=== PATIENT | female | born 1965 | race Caucasian/White ===

== ENCOUNTER → 2022-02-14 11:22 | Outpatient (BNVA) | payer OTHER, SELFPAY | PROVIDERS: Visit Provider Physician Assistant | DX: S63.602A Unspecified sprain of left thumb, initial encounter (principal); S89.92XA Unspecified injury of left lower leg, initial encounter; S89.91XA Unspecified injury of right lower leg, initial encounter; W18.31XA Fall on same level due to stepping on an object, initial encounter | CPT/HCPCS: 73110; 99203 ==

== ENCOUNTER → 2022-02-22 09:49 | Outpatient (BNVA) | payer OTHER, SELFPAY | PROVIDERS: Visit Provider Physician Assistant | DX: S63.602D Unspecified sprain of left thumb, subsequent encounter (principal); S63.601D Unspecified sprain of right thumb, subsequent encounter; S46.819D Strain of other muscles, fascia and tendons at shoulder and upper arm level, unspecified arm, subsequent encounter; W01.0XXD Fall on same level from slipping, tripping and stumbling without subsequent striking against object, subsequent encounter; M25.561 Pain in right knee | CPT/HCPCS: 73200; 99214 ==

== ENCOUNTER 2022-02-27 07:38 | Outpatient (REF) | payer OTHER, SELFPAY ==
--- NOTE | ~2022-02-27 | XR_ITS ---
EXAMINATION: XR HAND, LEFT CLINICAL INFORMATION: Pain. COMPARISON: Radiograph of the left wrist dated from 02/16/2022. TECHNIQUE: PA, lateral, and oblique views of the left hand. FINDINGS: No acute fractures or malalignment. Carpal rows are maintained. Redemonstration of mild osteoarthrosis of the first CMC joint. No erosions. No chondrocalcinosis. No significant soft tissue abnormality. XR/XR hand LT min 3V IMPRESSION: No acute fracture or malalignment. 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
== END 2022-02-27 07:39 | disposition home or self-care (01) ==
LOC: HO.HOSX 07:38
PROVIDERS: Visit Provider Physician Assistant
DX: S62.102A Fracture of unspecified carpal bone, left wrist, initial encounter for closed fracture (principal)
CPT/HCPCS: 73130; 99202

== ENCOUNTER 2022-03-19 07:17 | Outpatient (REF) | payer OTHER, BC, SELFPAY ==
--- NOTE | ~2022-03-19 | XR_ITS ---
EXAMINATION: XR HAND, LEFT CLINICAL INFORMATION: Pain COMPARISON: Previous x-ray 02/27/2022 TECHNIQUE: PA, lateral, and oblique views of the left hand. FINDINGS: Bone alignment is normal. No fracture or dislocation is seen. There is mild arthritis at the first FDC joint. Joint spaces are otherwise normal. Soft tissues are normal. XR/XR hand LT min 3V IMPRESSION: Mild arthritis at the first FDC joint.
== END 2022-03-19 07:18 | disposition home or self-care (01) ==
LOC: HO.HOSX 07:17
PROVIDERS: Visit Provider Physician Assistant
DX: S62.102A Fracture of unspecified carpal bone, left wrist, initial encounter for closed fracture (principal)
CPT/HCPCS: 73130; 99212

== ENCOUNTER → 2022-04-16 13:03 | Outpatient (BNVA) | payer OTHER, BC, SELFPAY | PROVIDERS: PCP Nurse Practitioner Family; Visit Provider Physician Assistant | DX: S62.109D Fracture of unspecified carpal bone, unspecified wrist, subsequent encounter for fracture with routine healing (principal) | CPT/HCPCS: 99212 ==

== ENCOUNTER → 2022-06-01 09:35 | Outpatient (BNVA) | payer OTHER, SELFPAY | PROVIDERS: PCP Nurse Practitioner Family; Visit Provider Physician Assistant Medical | DX: S29.012A Strain of muscle and tendon of back wall of thorax, initial encounter (principal); S39.012A Strain of muscle, fascia and tendon of lower back, initial encounter; W03.XXXA Other fall on same level due to collision with another person, initial encounter | CPT/HCPCS: 99203 ==

== ENCOUNTER → 2022-07-25 13:38 | Outpatient (BNVA) | payer OTHER, SELFPAY | PROVIDERS: PCP Nurse Practitioner Family; Visit Provider Physician Assistant | DX: S83.411A Sprain of medial collateral ligament of right knee, initial encounter (principal); S93.602A Unspecified sprain of left foot, initial encounter; W18.39XA Other fall on same level, initial encounter | CPT/HCPCS: 73630; 99204 ==

== ENCOUNTER → 2022-08-01 09:21 | Outpatient (BNVA) | payer OTHER, SELFPAY | PROVIDERS: PCP Nurse Practitioner Family; Visit Provider Physician Assistant | DX: S83.411A Sprain of medial collateral ligament of right knee, initial encounter (principal); S93.602A Unspecified sprain of left foot, initial encounter; W18.39XA Other fall on same level, initial encounter | CPT/HCPCS: 99213 ==

== ENCOUNTER → 2022-08-10 15:17 | Outpatient (BNVA) | payer OTHER, SELFPAY | PROVIDERS: PCP Nurse Practitioner Family; Visit Provider Physician Assistant | DX: S93.602A Unspecified sprain of left foot, initial encounter (principal); S83.411A Sprain of medial collateral ligament of right knee, initial encounter; W18.39XA Other fall on same level, initial encounter; M54.50 Low back pain, unspecified | CPT/HCPCS: 99213 ==

== ENCOUNTER → 2024-08-06 14:25 | Outpatient (BNVA) | payer OTHER, SELFPAY | PROVIDERS: PCP Nurse Practitioner Family; Visit Provider Physician Assistant Medical | DX: S50.12XA Contusion of left forearm, initial encounter (principal); Y04.2XXA Assault by strike against or bumped into by another person, initial encounter | CPT/HCPCS: 99202 ==